=== PATIENT | male | born 1960 | race Caucasian/White ===

== ENCOUNTER 2018-03-14 17:39 | Inpatient (IN) | payer SELFPAY ==
[~2018-03-14] VITALS: Ht 180.3 cm; Wt 70.0 kg
[2018-03-14 19:24] LABS: Basophils # (auto) 0 uL; Basophils % (auto) 0.6 % (0.0-2.0); Eosinophils # (auto) 0.1 uL; Hemoglobin 17.8 g/dL (13.5-17.5); Lymphocytes # (auto) 2.4 uL; Monocytes # (auto) 0.4 uL; Monocytes % (auto) 5.4 % (0.0-12.0); Nucleated Red Blood Cells % 0.1 %
[2018-03-14 19:27] LABS: Eosinophils % (auto) 1.6 % (0.0-7.0); Hematocrit 52.2 % (41.0-53.0); Lymphocytes % (auto) 32.4 % (10.0-50.0); Mean Corpuscular Hemoglobin 31.9 pg (28.0-32.0); Mean Corpuscular Volume 93.8 fL (80.0-100.0); Neutrophils # (auto) 4.3 uL; Platelet Count (auto) 271 10^3/uL (140-450); Red Blood Cells 5.56 10^6/uL (4.5-5.90); White Blood Cell 7.3 10^3/uL (4.4-10.8)
[2018-03-14 19:28] LABS: Calcium 8.7 mg/dL (8.5-10.1); Potassium 4.5 mmol/L (3.5-5.1)
[2018-03-14 20:11] LABS: BUN/Creatinine Ratio 17.9
[2018-03-14 20:12] LABS: Bilirubin, Total 0.4 mg/dL (0.2-1.0); Total Protein 8.1 g/dL (6.4-8.2)
[2018-03-14 20:14] LABS: Albumin 2.9 g/dL (3.4-5.0)
[2018-03-15] MEDS ORDERED: KETOROLAC TROMETH 60MG/2ML VIAL IM ONE (05:30)
[2018-03-15] MEDS ORDERED: ACETAMINOPHEN 325 MG TAB PO PRN (06:15)
[2018-03-15] MEDS ORDERED: HYDROcodone-ACET 5/325MG TAB PO PRN (06:15)
[2018-03-15] MEDS ORDERED: ONDANSETRON HCL 4 MG/2 ML VIAL IV PRN (06:15)
[2018-03-15] MEDS ORDERED: TEMAZEPAM 15 MG CAP PO PRN (06:15)
[2018-03-15 06:53] LABS: INR 0.98 (0.9-1.15); Partial Thromboplastin Time 26.2 sec (23.78-33.04); Prothrombin Time 10.5 sec (9.27-12.13)
[2018-03-15] MEDS: cloNIDine HCL 0.1 MG TAB PO PRN ×2 (06:59→13:11)
[2018-03-15] MEDS: FAMOTIDINE 20 MG TAB PO SCH ×2 (10:07→22:31)
[2018-03-15 10:33] VITALS: BP 195/98
[2018-03-15 11:49] VITALS: BP 195/98
[2018-03-15 12:00] VITALS: BP 146/93
[2018-03-15] MEDS: CLINDAMYCIN 600MG IV 50 ML IV SCH ×2 (13:11→22:31)
[2018-03-15] MEDS ORDERED: METOPROLOL TARTRATE 50 MG TAB PO ONE (15:45)
[2018-03-15 17:00] VITALS: BP 142/97
[2018-03-15 20:00] VITALS: BP 150/84
[2018-03-15 21:49] VITALS: BP 150/84
[2018-03-16 04:42] VITALS: BP 144/76
[2018-03-16] MEDS: CLINDAMYCIN 600MG IV 50 ML IV SCH ×3 (05:52→23:07)
[2018-03-16 09:00] VITALS: BP 153/92
[2018-03-16] MEDS: FAMOTIDINE 20 MG TAB PO SCH ×2 (10:00→23:07)
[2018-03-16] MEDS: METOPROLOL TARTRATE 50 MG TAB PO SCH ×2 (10:00→23:07)
[2018-03-16] MEDS ORDERED: INFLUENZA QUAD 2018-2019 0.5 ML SYRG IM ONE (10:00)
[2018-03-16 13:00] VITALS: BP 185/103
[2018-03-16] MEDS: cloNIDine HCL 0.1 MG TAB PO PRN (16:30)
[2018-03-16 16:58] VITALS: BP 157/87
[2018-03-16 20:00] VITALS: BP 165/81
[2018-03-16 22:00] VITALS: BP 165/81
[2018-03-17] MEDS: cloNIDine HCL 0.1 MG TAB PO PRN ×2 (00:24→20:52)
[2018-03-17 05:00] VITALS: BP 145/69
[2018-03-17] MEDS: CLINDAMYCIN 600MG IV 50 ML IV SCH ×3 (05:28→22:08)
[2018-03-17 09:00] VITALS: BP 130/76
[2018-03-17] MEDS: METOPROLOL TARTRATE 50 MG TAB PO SCH ×2 (10:00→22:09)
[2018-03-17] MEDS: FAMOTIDINE 20 MG TAB PO SCH ×2 (10:00→22:08)
[2018-03-17 12:59] VITALS: BP 161/93
[2018-03-17 16:52] VITALS: BP 146/80
[2018-03-17 21:22] VITALS: BP 178/90
[2018-03-18 04:36] VITALS: BP 149/83
[2018-03-18] MEDS: CLINDAMYCIN 600MG IV 50 ML IV SCH ×3 (05:41→21:58)
[2018-03-18 06:44] LABS: Basophils # (auto) 0.1 uL; Eosinophils # (auto) 0.1 uL; Eosinophils % (auto) 1.8 % (0.0-7.0); Hematocrit 48.8 % (41.0-53.0); Hemoglobin 17.2 g/dL (13.5-17.5); Lymphocytes # (auto) 1.8 uL; Mean Corpuscular Hemoglobin 32.3 pg (28.0-32.0); Mean Corpuscular Hgb Conc. 35.2 g/dL (32.0-36.0); Mean Corpuscular Volume 91.8 fL (80.0-100.0); Monocytes # (auto) 0.5 uL; Monocytes % (auto) 8.8 % (0.0-12.0); Neutrophils # (auto) 3.3 uL; Neutrophils % (auto) 57.4 % (37.0-80.0); Nucleated Red Blood Cells % 0.2 %; Platelet Count (auto) 197 10^3/uL (140-450); Red Blood Cells 5.32 10^6/uL (4.5-5.90); Red Cell Distribution Width 12.4 % (11.8-14.3); White Blood Cell 5.7 10^3/uL (4.4-10.8)
[2018-03-18 08:32] VITALS: BP 137/78
[2018-03-18] MEDS: FAMOTIDINE 20 MG TAB PO SCH ×2 (10:00→21:58)
[2018-03-18] MEDS: METOPROLOL TARTRATE 50 MG TAB PO SCH ×2 (10:00→21:59)
[2018-03-18] MEDS ORDERED: CLOPIDOGREL 300 MG TAB PO ONE (11:45)
[2018-03-18 12:42] VITALS: BP 142/85
[2018-03-18 17:00] VITALS: BP 146/76
[2018-03-18 21:24] VITALS: BP 144/91
[2018-03-19 04:42] VITALS: BP 160/73
[2018-03-19] MEDS: CLINDAMYCIN 600MG IV 50 ML IV SCH ×3 (06:11→22:00)
[2018-03-19 09:00] VITALS: BP 160/86
[2018-03-19] MEDS: CLOPIDOGREL BISULFATE 75 MG TAB PO SCH (10:00)
[2018-03-19] MEDS: METOPROLOL TARTRATE 50 MG TAB PO SCH ×2 (11:05→21:50)
[2018-03-19] MEDS: FAMOTIDINE 20 MG TAB PO SCH ×2 (11:05→21:50)
[2018-03-19 13:00] VITALS: BP 197/95
[2018-03-19 17:00] VITALS: BP 183/82
[2018-03-19 22:00] VITALS: BP 182/94
[2018-03-20 05:00] VITALS: BP 188/99
[2018-03-20] MEDS: cloNIDine HCL 0.1 MG TAB PO PRN (06:12)
[2018-03-20] MEDS: CLINDAMYCIN 600MG IV 50 ML IV SCH ×3 (06:16→22:00)
[2018-03-20 08:23] LABS: Urine Bacteria NONE SEEN /hpf (None Seen); Urine Blood Negative /uL (Negative); Urine Mucus FEW (None Seen); Urine Specific Gravity 1.023 (1.001-1.035); Urine WBC 1 /hpf (0 - 3)
[2018-03-20 08:41] VITALS: BP 142/83
[2018-03-20] MEDS: FAMOTIDINE 20 MG TAB PO SCH ×2 (09:47→22:53)
[2018-03-20] MEDS: CLOPIDOGREL BISULFATE 75 MG TAB PO SCH (09:48)
[2018-03-20] MEDS: METOPROLOL TARTRATE 50 MG TAB PO SCH ×2 (10:00→22:53)
[2018-03-20 12:57] VITALS: BP 159/84
[2018-03-20 16:53] VITALS: BP 158/62
[2018-03-20 23:18] VITALS: BP 162/97
[2018-03-21] MEDS: cloNIDine HCL 0.1 MG TAB PO PRN ×2 (00:36→08:44)
[2018-03-21 05:20] VITALS: BP 150/76
[2018-03-21] MEDS: CLINDAMYCIN 600MG IV 50 ML IV SCH ×3 (05:57→22:09)
[2018-03-21 09:00] VITALS: BP 170/83
[2018-03-21] MEDS: CLOPIDOGREL BISULFATE 75 MG TAB PO SCH (10:00)
[2018-03-21] MEDS: METOPROLOL TARTRATE 50 MG TAB PO SCH (10:00)
[2018-03-21] MEDS: FAMOTIDINE 20 MG TAB PO SCH ×2 (10:00→22:09)
[2018-03-21] MEDS ORDERED: LIDOCAINE 2%HCL (LOCAL ANESTH.) INJ 20ML MDV ONE (11:25)
[2018-03-21] MEDS ORDERED: fentaNYL CITRATE 100 MCG/2 ML VL ONE (11:42)
[2018-03-21] MEDS ORDERED: ANGIOMAX 250 MG VIAL IV ONE (11:42)
[2018-03-21] MEDS ORDERED: SODIUM CHL 0.9% 50 ML ONE ×2 (11:42→12:01)
[2018-03-21] MEDS ORDERED: MIDAZOLAM HCL 1MG/1ML-2 ML VIAL ONE (11:42)
[2018-03-21] MEDS ORDERED: IOHEXOL 350 MG/ML 100ML IJ ONE ×2 (11:47→12:25)
[2018-03-21] MEDS ORDERED: NITROGLYCERIN 5MG/ML 10ML VIAL IV ONE (11:56)
[2018-03-21] MEDS ORDERED: NITROGLYCERIN 0.4MG/DOSE SPRAY 4.9GM ONE (12:27)
[2018-03-21] MEDS ORDERED: cloNIDine HCL 0.1 MG TAB PO PRN (12:45)
[2018-03-21 17:00] VITALS: BP 145/91
[2018-03-21] MEDS: MULTIPLE VITAMINS W/ MINERALS TAB PO SCH (18:41)
[2018-03-21] MEDS: ASCORBIC ACID 500 MG TAB PO SCH (18:41)
[2018-03-21 21:33] VITALS: BP 146/80
[2018-03-21] MEDS: amLODIPine BESYLATE 5 MG TAB PO SCH (22:09)
[2018-03-22 05:00] VITALS: BP 164/87
[2018-03-22] MEDS: CLINDAMYCIN 600MG IV 50 ML IV SCH ×2 (06:00→14:00)
[2018-03-22 08:00] VITALS: BP 151/79
[2018-03-22] MEDS: MULTIPLE VITAMINS W/ MINERALS TAB PO SCH (08:57)
[2018-03-22] MEDS: ASCORBIC ACID 500 MG TAB PO SCH (08:57)
[2018-03-22] MEDS: CLOPIDOGREL BISULFATE 75 MG TAB PO SCH (09:04)
[2018-03-22] MEDS: FAMOTIDINE 20 MG TAB PO SCH (09:04)
[2018-03-22] MEDS: amLODIPine BESYLATE 5 MG TAB PO SCH (09:04)
[2018-03-22 12:00] VITALS: BP 158/82
== END 2018-03-22 17:50 | disposition home or self-care (01) | DRG 301 ==
LOC: ER 17:44 → OVERFLOW 03-15 06:04 → WEST WING 03-15 10:25
PROVIDERS: ADMIT Nurse Practitioner; ATTEND Family Medicine
PROC: B41G1ZZ Fluoroscopy of Left Lower Extremity Arteries using Low Osmolar Contrast (ICD-10-PCS; principal; 2018-03-21)
PROC: B41F1ZZ Fluoroscopy of Right Lower Extremity Arteries using Low Osmolar Contrast (ICD-10-PCS; 2018-03-21)
DX: E11.51 Type 2 diabetes mellitus with diabetic peripheral angiopathy without gangrene (principal); E11.621 Type 2 diabetes mellitus with foot ulcer; F12.90 Cannabis use, unspecified, uncomplicated; I10 Essential (primary) hypertension; I70.203 Unspecified atherosclerosis of native arteries of extremities, bilateral legs; I99.8 Other disorder of circulatory system; L97.529 Non-pressure chronic ulcer of other part of left foot with unspecified severity
CPT/HCPCS: 36415; 71045; 73620; 73700; 73718; 80053; 81001; 82962; 85025; 85610; 85730; 86850; 86900; 86901; 87205; 90674; 93926; 96365; 99152; A6257; C1769; G0378; J2250; J3490